=== PATIENT | male | born 1995 | race Caucasian/White ===

== ENCOUNTER 2016-12-23 18:21 | Emergency (ER) | payer OTHER ==
[~2016-12-23] VITALS: Ht 165.1 cm; Wt 80.0 kg
[~2016-12-23 18:21] MED LIST: CYCL-36 PO; IBUP800T23 PO
[2016-12-23 18:22] VITALS: BP 147/93; PULSE 117; RESP 14; TEMP 98; O2SAT 99
== END 2016-12-23 23:00 | disposition left against medical advice (07) ==
LOC: NETRI 18:21
DX: M79.642 Pain in left hand (principal)
CPT/HCPCS: 99281

== ENCOUNTER 2016-12-25 17:02 | Emergency (ER) | payer SELFPAY ==
[~2016-12-25] VITALS: Ht 165.1 cm; Wt 80.0 kg
[2016-12-25 17:03] VITALS: BP 153/81; PULSE 92; RESP 14; TEMP 97.5; O2SAT 98
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
[2016-12-25] MEDS ORDERED: LIDOCAINE HCL 1% PF 30 ML VIAL INFIL ONE (21:30)
[2016-12-25] MEDS ORDERED: TYLETAB34 PO (22:04)
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
== END 2016-12-25 23:17 | disposition home or self-care (01) ==
LOC: NEPB 17:02
DX: S62.617A Displaced fracture of proximal phalanx of left little finger, initial encounter for closed fracture (principal); Z72.0 Tobacco use; W22.09XA Striking against other stationary object, initial encounter
CPT/HCPCS: 25605; 64450; 73130; 73140